=== PATIENT | female | born 1940 | race Caucasian/White ===

== ENCOUNTER 2016-07-20 15:33 | Emergency (ER) | payer MEDICARE, BC ==
[2016-07-20 16:26] VITALS: BP 155/101
--- NOTE | 2016-07-20 16:45 | UC ---
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 She denies numbness or tingling. no LE pain - she does report a "strange sensation in right leg". She reports she saw her PCP 2 days ago for the same compliant and he didn't feel that is was anything of concern. No fevers or chills. No swollen joints. Denies SOB or CP. Her INRs checked every 3 weeks and has been therapeutic for " a long time". She had a similar c/o in February - History of Current Complaint Chief Complaint: UCLowerExtremity Time Seen by Provider: 07/20/16 16:25 Stated Complaint: RIGHT FOOT COMPLAINT Hx Obtained From: Patient ?: No Onset/Duration: Gradual Onset - started February 2016, Worse Since - 1-2 months ago Onset Severity: Mild Current Severity: Mild Pain Intensity: 1 Pain Scale Used: 0-10 Numeric Location: Discrete - top of right foot - noted light purplish/reddish Aggravating: Other - appears worse when leg is dependent Alleviating: Other - appears better when leg is elevated stating "it turns white " Associated Signs & Symptoms: Positive: Negative - Allergy/Home Medications Allergies/Adverse Reactions: Allergies Allergy/AdvReac Type Severity Reaction Status Date / Time Bee Venom Allergy Anaphylatic Verified 07/20/16 16:26 Shock Review of Systems Constitutional: Negative Skin: Other - top of right foot "mild discoloration" purplish/reddish Eyes: Negative ENT: Negative Respiratory: Negative Cardiovascular: Negative Gastrointestinal: Negative Genitourinary: Negative Motor: Negative Neurovascular: Negative Musculoskeletal: Negative Neurological: Negative Psychological: Negative All Other Systems Reviewed And Are Negative: Yes PMH/Surg Hx/FS Hx/Imm Hx Previously Healthy: Yes - Surgical History Surgical History: Yes Surgery Procedure, Year, and Place: UTERINE CA S/P TOTAL HYSTERECTOMY - Family History Known Family History: Positive: None, Hypertension - Social History Occupation: Retired Lives: With Family Alcohol Use: Weekly Substance Use Type: None Smoking Status (MU): Never Smoked Tobacco Have You Smoked in the Last Year: No - Immunization History Hx Tetanus, Diphtheria Vaccination: Yes Vaccination Up to Date: Yes Physical Exam Triage Information Reviewed: Yes Appearance: Well-Appearing, No Pain Distress, Well-Nourished Vital Signs: Initial Vital Signs Temp 97.6 F 07/20/16 16:19 Pulse 78 07/20/16 16:19 Resp 20 07/20/16 16:19 BP 155/101 07/20/16 16:19 Pulse Ox 97 07/20/16 16:19 Vital Signs Reviewed: Yes Neck: Positive: Supple, Nontender, No Lymphadenopathy Respiratory: Positive: Chest non-tender, Lungs clear, Normal breath sounds, No respiratory distress, No accessory muscle use Cardiovascular: Positive: RRR, No Murmur, Pulses Normal Abdomen Description: Positive: Nontender, Soft Bowel Sounds: Positive: Present Musculoskeletal: Positive: Strength Intact, ROM Intact, No Edema Neurological: Positive: Alert Psychological Exam: Normal Skin: Positive: Other - dorsal aspect of right foot has 4mm by 4 mm diffuse area mildy discolored red, mildly purplish - + Course/Dx - Differential Diagnoses - Skin Complaint Differential Diagnoses: Cellulitis - Diagnoses Provider Diagnoses: 1. VASCULAR SKIN CHANGES Discharge - Discharge Plan Condition: Stable Disposition: HOME Referrals: [facility] [Provider Group] (talk to your primary about a vascular evaluation) Ilya Braden MD [Primary Care Provider] - (please call tomorrow for a follow up this week) Additional Instructions: The top of right foot appears to have some mild discoloration. I have low suspicion for infection and this appears chronic, possibly a vascular problem. I do not think it is acute at this time but recommend you follow up with your primary this week and discuss that we recommended you should be referred to a vascular surgeon for an evaluation. Call [facility] surgeons in [place], [place]. If you have any worsening or concerning symptoms such as loss of feeling, worsening pain, worsening discoloration (white or dark purple/blue or bright red ) you should go to the emergency department.
== END 2016-07-20 17:30 | disposition home or self-care (01) ==
LOC: UCCORT 15:33
DX: R23.8 Other skin changes (principal); Z85.42 Personal history of malignant neoplasm of other parts of uterus; Z86.711 Personal history of pulmonary embolism; Z86.718 Personal history of other venous thrombosis and embolism; Z79.01 Long term (current) use of anticoagulants
CPT/HCPCS: 99211; G0463